=== PATIENT | male | born 1975 | race Caucasian/White ===

== ENCOUNTER 2021-01-16 17:55 | Observation (INO) | payer OTHER ==
[~2021-01-16] VITALS: Ht 175.3 cm; Wt 176.9 kg
[~2021-01-16 17:55] MED LIST: ASPIRIN EC81 MG PO; ATORVASTATIN CA20 MG PO; HUMALOG 10100 UNITS/ SC; IMDUR ER TAB 3030 MG PO; LASIX40 MG PO; LIPITOR TAB 2020 MG PO; LISINOPRIL30 MG PO; NOVOLOG FL100 UNIT/1 SQ; NOVOLOG100 UNIT/1 SC; OMNICEF 300 MG300 MG PO; PLAVIX75 MG PO; PRINIVIL20 MG PO; SUBOXONE 8 MG-1 EACH SL; TOPROL XL100 MG PO; TRESIBA100 UNIT/1 SQ
[2021-01-16 20:46] LABS: HEMOGLOBIN 15.4 gm/dl (14.0-17.5); RED BLOOD COUNT 5.39 M/UL (4.20-5.50); WHITE BLOOD COUNT 8.7 K/UL (4.5-11.0)
[2021-01-16 21:09] LABS: BUN/CREATININE RATIO 19 (0-10)
[2021-01-17] MEDS ORDERED: LIPITOR20 MG PO (00:15)
[2021-01-17] MEDS ORDERED: ALDACTONE25 MG PO (00:17)
[2021-01-17] MEDS ORDERED: NEURONTIN600 MG PO (00:20)
[2021-01-17] MEDS ORDERED: VENTOLIN HFA 66.7 GM INH (00:21)
[2021-01-17] MEDS ORDERED: JARDIANCE25 MG PO (00:23)
[2021-01-17] MEDS ORDERED: FLOMAX 0.4 MG0.4 MG PO (00:24)
--- NOTE | 2021-01-17 15:12 | NUR ---
PT REFUSED FLU SHOT
[2021-04-13] MEDS ORDERED: TRULICITY1.5 MG/0.5 SQ (00:17)
[2021-04-13] MEDS ORDERED: NOVOLOG FL100 UNIT/1 SQ (00:18)
[2021-04-13] MEDS ORDERED: DOK100 MG PO (00:26)
== END 2021-01-17 15:31 | disposition home or self-care (01) ==
LOC: ER1 17:55 → CDU 23:27 → M/S 23:27
PROVIDERS: Family Medicine; ADMIT Internal Medicine
DX: R07.89 Other chest pain (principal); I11.0 Hypertensive heart disease with heart failure; I50.30 Unspecified diastolic (congestive) heart failure; E78.5 Hyperlipidemia, unspecified; I25.10 Atherosclerotic heart disease of native coronary artery without angina pectoris; R00.8 Other abnormalities of heart beat; I25.2 Old myocardial infarction; E11.9 Type 2 diabetes mellitus without complications; J44.9 Chronic obstructive pulmonary disease, unspecified; E66.2 Morbid (severe) obesity with alveolar hypoventilation; I45.10 Unspecified right bundle-branch block; F11.20 Opioid dependence, uncomplicated; I87.8 Other specified disorders of veins; R77.8 Other specified abnormalities of plasma proteins; Z95.5 Presence of coronary angioplasty implant and graft; Z20.822 Contact with and (suspected) exposure to COVID-19; Z87.891 Personal history of nicotine dependence; Z82.49 Family history of ischemic heart disease and other diseases of the circulatory system; Z68.43 Body mass index [BMI] 50.0-59.9, adult; Z88.6 Allergy status to analgesic agent; Z88.8 Allergy status to other drugs, medicaments and biological substances; Z79.82 Long term (current) use of aspirin; Z79.4 Long term (current) use of insulin; Z79.02 Long term (current) use of antithrombotics/antiplatelets; Z79.899 Other long term (current) drug therapy
CPT/HCPCS: 36415; 71045; 80053; 82550; 82553; 82962; 83874; 83880; 84484; 85025; 93005; 99285; G0378; U0002

== ENCOUNTER → 2021-02-27 | Outpatient (CLI) | payer OTHER ==
[~2021-02-27] MED LIST changes: +ALDACTONE25 MG PO; +CEPHALEXIN500 MG PO; +DOK100 MG PO; +FLOMAX 0.4 MG0.4 MG PO; +JARDIANCE25 MG PO; +LIPITOR20 MG PO; +METOPROLOL TART50 MG PO; +NEURONTIN600 MG PO; +TRULICITY1.5 MG/0.5 SQ; +VENTOLIN HFA 66.7 GM INH; +VISINE TIRED EY15 ML EYEBOTH; +ZAROXOLYN/DIULO5 MG PO
== END ==
LOC: SLEEP 12:39
DX: G47.33 Obstructive sleep apnea (adult) (pediatric) (principal)
CPT/HCPCS: 95811

== ENCOUNTER 2021-04-13 08:25 | Observation (INO) | payer OTHER ==
[~2021-04-13] VITALS: Ht 175.3 cm; Wt 181.4 kg
[~2021-04-13 08:25] MED LIST changes: -CEPHALEXIN500 MG PO; -METOPROLOL TART50 MG PO; -VISINE TIRED EY15 ML EYEBOTH; -ZAROXOLYN/DIULO5 MG PO
[2021-04-13 09:03] LABS: HEMOGLOBIN 15.4 gm/dl (14.0-17.5); RED BLOOD COUNT 5.55 M/UL (4.20-5.50)
[2021-04-13 09:44] LABS: BUN/CREATININE RATIO 18 (0-10)
[2021-04-13] MEDS ORDERED: CEPHALEXIN500 MG PO (12:00)
[2021-04-13] MEDS ORDERED: VISINE TIRED EY15 ML EYEBOTH (12:00)
[2021-04-13] MEDS ORDERED: METOPROLOL TART50 MG PO (17:11)
[2021-04-14 04:52] LABS: HEMOGLOBIN 15.2 gm/dl (14.0-17.5); RED BLOOD COUNT 5.5 M/UL (4.20-5.50); WHITE BLOOD COUNT 7.2 K/UL (4.5-11.0)
[2021-04-14 07:05] LABS: BUN/CREATININE RATIO 16 (0-10)
[2021-04-14] MEDS ORDERED: ZAROXOLYN/DIULO5 MG PO (16:08)
[2021-04-14] MEDS ORDERED: LASIX40 MG PO (16:08)
== END 2021-04-14 16:57 | disposition home or self-care (01) ==
LOC: ER1 08:25 → CDU 11:23 → M/S 13:30
PROVIDERS: Emergency Medicine; Physician Assistant Medical; ADMIT Internal Medicine
DX: I11.0 Hypertensive heart disease with heart failure (principal); I50.31 Acute diastolic (congestive) heart failure; E66.01 Morbid (severe) obesity due to excess calories; E11.9 Type 2 diabetes mellitus without complications; G47.33 Obstructive sleep apnea (adult) (pediatric); I45.10 Unspecified right bundle-branch block; E78.5 Hyperlipidemia, unspecified; Z20.822 Contact with and (suspected) exposure to COVID-19; J44.9 Chronic obstructive pulmonary disease, unspecified; J96.10 Chronic respiratory failure, unspecified whether with hypoxia or hypercapnia; I25.10 Atherosclerotic heart disease of native coronary artery without angina pectoris; I25.2 Old myocardial infarction; R77.8 Other specified abnormalities of plasma proteins; I49.3 Ventricular premature depolarization; E87.70 Fluid overload, unspecified; I87.8 Other specified disorders of veins; Z95.5 Presence of coronary angioplasty implant and graft; Z91.19 Patient's noncompliance with other medical treatment and regimen; Z87.891 Personal history of nicotine dependence; Z68.43 Body mass index [BMI] 50.0-59.9, adult; Z99.89 Dependence on other enabling machines and devices; Z88.6 Allergy status to analgesic agent; Z88.8 Allergy status to other drugs, medicaments and biological substances; Z79.82 Long term (current) use of aspirin; Z79.4 Long term (current) use of insulin; Z79.02 Long term (current) use of antithrombotics/antiplatelets; Z79.899 Other long term (current) drug therapy
CPT/HCPCS: 36415; 71045; 80048; 80053; 82550; 82553; 82962; 83735; 83874; 83880; 84484; 85025; 85027; 85610; 85730; 93005; 94760; 96374; 96376; 99285; G0378; J1940; U0002

== ENCOUNTER → 2021-08-08 | Outpatient (CLI) | payer OTHER ==
[~2021-08-08] MED LIST changes: +CEPHALEXIN500 MG PO; +METOPROLOL TART50 MG PO; +VISINE TIRED EY15 ML EYEBOTH; +ZAROXOLYN/DIULO5 MG PO
== END ==
LOC: ECHO 12:57
DX: R06.02 Shortness of breath (principal)
CPT/HCPCS: 93350; J1250

== ENCOUNTER → 2021-12-07 | Outpatient (CLI) | payer OTHER | LOC: KOH-I 15:10 | DX: J20.9 Acute bronchitis, unspecified (principal); R10.84 Generalized abdominal pain; R14.3 Flatulence | CPT/HCPCS: 71046; 74018 ==

== ENCOUNTER → 2022-05-01 | Outpatient (CLI) | payer OTHER | LOC: US 04-18 13:30 → HEART 5 14:02 | DX: I87.2 Venous insufficiency (chronic) (peripheral) (principal); I73.9 Peripheral vascular disease, unspecified | CPT/HCPCS: 93970 ==

== ENCOUNTER → 2022-07-16 | Outpatient (CLI) | payer OTHER | LOC: KOH-I 10:46 | DX: M79.661 Pain in right lower leg (principal) | CPT/HCPCS: 93971 ==